=== PATIENT | male | born 1965 | race Caucasian/White ===

== ENCOUNTER 2016-07-06 16:54 | Emergency (ER) | payer OTHER ==
[~2016-07-06] VITALS: Wt 121.5 kg
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
--- NOTE | 2016-07-06 20:05 | RADRPT ---
PROCEDURE: CT Brain without contrast. CLINICAL INDICATION: Headache. TECHNIQUE: A CT of the brain without contrast was performed utilizing axial sections from the skul l base through the vertex. The patient was scanned without intravenous contrast enhancement. Sagitta l and coronal reformatted images were obtained using the data from the axial images. Total exam DLP is unobtainable. CTDIvol is unobtainable. One or more of the following dose reduction techniques were used: Automated exposure control, adjustment of the mA and/or kV according to patient size, use of iterative reconstruction technique. COMPARISON: None available FINDINGS: There is normal rodriguez-white matter differentiation. There is mild enlargement of the ventricles and subarachnoid spaces consistent with atrophy. There is no intracranial hemorrhage or space-occupying lesion. There is no skull fracture or lytic lesion. IMPRESSION: 1. Mild atrophy. 2. Otherwise normal noncontrast CT scan of the brain. RPTAT: QQ .Rod Paulino MD, MD Date Time Electronically viewed and signed by .Rod Paulino MD, on 07/06/2016 20:05 .R/
[2016-07-06] MEDS ORDERED: IBUP-1542 PO (20:08)
[2016-07-06 20:18] VITALS: BP 123/80; PULSE 80; RESP 18; TEMP 98.1
== END 2016-07-06 20:19 | disposition home or self-care (01) ==
LOC: FTE 16:54
DX: S09.90XA Unspecified injury of head, initial encounter (principal); R51 Headache; V49.40XA Driver injured in collision with unspecified motor vehicles in traffic accident, initial encounter
CPT/HCPCS: 70450; Z7502